=== PATIENT | male | born 1985 | race African-American/Black ===

== ENCOUNTER 2018-02-26 17:49 | Emergency (ER) | payer MEDICAID, OTHER ==
[~2018-02-26] VITALS: Ht 172.7 cm; Wt 95.0 kg
[~2018-02-26 17:49] MED LIST: ALBUTEROL INH; DOXYCYCLINE PO; FLUT1DIS3 IH; LEVO750T21 PO; MOTRIN; ROBITUSSIN
[2018-02-26] MEDS ORDERED: MORPHINE SULFATE 10 MG/ML CPJ IM ONE (18:30)
[2018-02-26 18:58] VITALS: BP 111/74
== END 2018-02-26 21:00 | disposition home or self-care (01) ==
LOC: ER 20:53
DX: S09.8XXA Other specified injuries of head, initial encounter (principal); R42 Dizziness and giddiness; R11.10 Vomiting, unspecified; F17.200 Nicotine dependence, unspecified, uncomplicated; J45.909 Unspecified asthma, uncomplicated; W22.8XXA Striking against or struck by other objects, initial encounter; Y93.89 Activity, other specified; Y92.89 Other specified places as the place of occurrence of the external cause; Y99.8 Other external cause status; Z79.899 Other long term (current) drug therapy
CPT/HCPCS: 70450; 96372; 99284; J2270

== ENCOUNTER 2020-08-09 14:42 | Emergency (ER) | payer OTHER ==
[~2020-08-09] VITALS: Ht 172.7 cm; Wt 96.0 kg
[2020-08-09 14:50] VITALS: BP 140/101
[2020-08-09] MEDS ORDERED: CLOT15CR5 TP (15:05)
== END 2020-08-09 15:12 | disposition home or self-care (01) ==
LOC: ER 14:42
DX: B35.3 Tinea pedis (principal); I10 Essential (primary) hypertension
CPT/HCPCS: 99282

== ENCOUNTER 2020-09-20 11:21 | Emergency (ER) | payer OTHER ==
[~2020-09-20] VITALS: Ht 172.7 cm; Wt 100.0 kg
[~2020-09-20 11:21] MED LIST changes: +CLOT15CR5 TP
[2020-09-20] MEDS ORDERED: FAMOTIDINE 20MG/2ML VIAL IV STA (11:30)
[2020-09-20] MEDS ORDERED: SODIUM CHLORIDE 0.9% 1,000 ML IV ONE (11:30)
[2020-09-20 11:57] LABS: CLARITY URINE CLEAR (CLEAR); COLOR URINE YELLOW (YELLOW); KETONES URINE NEGATIVE (NEGATIVE); LEUKOCYTE ESTERASE URINE NEGATIVE (NEGATIVE); NITRITE URINE NEGATIVE (NEGATIVE); OCCULT BLOOD URINE NEGATIVE (NEGATIVE); PH URINE 8.5 (4.5-8.0); PROTEIN URINE NEGATIVE (NEGATIVE); SPECIFIC GRAVITY URINE 1.017 (1.005-1.030); UROBILINOGEN URINE 0.2 E.U./dL (0.2-1.0)
[2020-09-20 11:58] LABS: BASOPHILS % 0.8 % (0.0-2.0); EOSINOPHILS % 2.6 % (0.0-5.0); HEMATOCRIT. 44.2 % (42.0-52.0); HEMOGLOBIN. 15.9 g/dL (14.0-18.0); LYMPHOCYTES % 20.1 % (20.0-50.0); MEAN CORPUSCULAR HEMOGLOBIN 32.9 pg (28.0-32.0); MEAN CORPUSCULAR VOLUME 91.4 fL (80.0-94.0); MEAN PLATELET VOLUME 9.7 fl (7.4-10.4); MONOCYTES % 6.2 % (2.0-8.0); NEUTROPHILS % 70.3 % (40.0-76.0); PLATELET 215 x1000/uL (130-400); RED BLOOD CELL COUNT 4.83 mill/uL (4.7-6.1); RED CELL DISTRIBUTION WIDTH 13.1 % (11.6-14.6)
[2020-09-20 12:03] LABS: CHLORIDE 106 mEq/L (98-107)
[2020-09-20 12:07] LABS: PROTHROMBIN TIME 10.3 sec (9.6-11.0)
[2020-09-20 13:19] LABS: *AMPHETAMINES SCREEN URINE NEGATIVE (NEGATIVE); *BARBITURATES SCREEN URINE NEGATIVE (NEGATIVE); *BENZODIAZEPINES SCREEN URINE NEGATIVE (NEGATIVE); *COCAINE SCREEN URINE NEGATIVE (NEGATIVE)
[2020-09-20 13:20] LABS: CANNABINOID URINE SCREEN PRESUMTIVE POSITIVE (NEGATIVE); METHADONE URINE SCREEN NEGATIVE (NEGATIVE); OPIATES URINE SCREEN NEGATIVE (NEGATIVE); PHENCYCLIDINE URINE SCREEN NEGATIVE (NEGATIVE)
[2020-09-20 14:30] VITALS: BP 143/102
[2020-09-20] MEDS ORDERED: METR500T MT ×2 (14:46→14:49)
[2020-09-20] MEDS ORDERED: CIPR-263 MT (14:47)
[2020-09-20] MEDS ORDERED: CIPR500T5 MT (14:49)
[2020-09-20] MEDS ORDERED: ONDA4TAB5 MT (14:49)
[2020-09-20] MEDS ORDERED: TRAM50TA3 MT (14:49)
== END 2020-09-20 15:34 | disposition home or self-care (01) ==
LOC: ER 11:21
DX: K57.92 Diverticulitis of intestine, part unspecified, without perforation or abscess without bleeding (principal); N43.3 Hydrocele, unspecified; N50.89 Other specified disorders of the male genital organs; R16.0 Hepatomegaly, not elsewhere classified
CPT/HCPCS: 36415; 74176; 76870; 80053; 80305; 81003; 83690; 85025; 85610; 93976; 96361; 96374; 99285; J3490; J7030

== ENCOUNTER 2020-11-27 16:16 | Emergency (ER) | payer OTHER ==
[~2020-11-27] VITALS: Ht 172.7 cm; Wt 93.0 kg
[~2020-11-27 16:16] MED LIST changes: +CIPR-263 MT; +CIPR500T5 MT; +METR500T MT; +ONDA4TAB5 MT; +TRAM50TA3 MT
[2020-11-27 18:47] VITALS: BP 161/91
== END 2020-11-27 18:49 | disposition home or self-care (01) ==
LOC: ER 16:31
DX: R20.2 Paresthesia of skin (principal); Z13.9 Encounter for screening, unspecified; J45.909 Unspecified asthma, uncomplicated; I10 Essential (primary) hypertension; F12.10 Cannabis abuse, uncomplicated; Z79.899 Other long term (current) drug therapy
CPT/HCPCS: 82962; 99281

== ENCOUNTER 2021-05-18 22:44 | Emergency (ER) | payer OTHER ==
[~2021-05-18] VITALS: Ht 172.7 cm; Wt 102.0 kg
[2021-05-19] MEDS ORDERED: KETOROLAC 60MG/2ML VIAL IM ONE (01:45)
[2021-05-19 02:47] LABS: CLARITY URINE CLOUDY (CLEAR); COLOR URINE DARK YELLOW (YELLOW); KETONES URINE TRACE (NEGATIVE); LEUKOCYTE ESTERASE URINE NEGATIVE (NEGATIVE); NITRITE URINE NEGATIVE (NEGATIVE); OCCULT BLOOD URINE NEGATIVE (NEGATIVE); PROTEIN URINE NEGATIVE (NEGATIVE); SPECIFIC GRAVITY URINE 1.033 (1.005-1.030)
[2021-05-19] MEDS ORDERED: IBUP-2029 MT (05:49)
[2021-05-19] MEDS ORDERED: CYCL10TA7 MT (05:49)
[2021-05-19 06:01] VITALS: BP 136/92
== END 2021-05-19 06:04 | disposition home or self-care (01) ==
LOC: ER 22:44
DX: R51.9 Headache, unspecified (principal); R07.89 Other chest pain; J45.909 Unspecified asthma, uncomplicated; I10 Essential (primary) hypertension; F12.10 Cannabis abuse, uncomplicated; Z79.899 Other long term (current) drug therapy
CPT/HCPCS: 70450; 71250; 81003; 96372; 99291; J1885

== ENCOUNTER 2021-07-09 14:40 | Emergency (ER) | payer OTHER ==
[~2021-07-09] VITALS: Ht 172.7 cm; Wt 110.0 kg
[~2021-07-09 14:40] MED LIST changes: +CYCL10TA7 MT; +IBUP-2029 MT
[2021-07-09] MEDS ORDERED: KETOROLAC 60MG/2ML VIAL IM STA (15:23)
[2021-07-09] MEDS ORDERED: METOCLOPRAMIDE HCL 10MG/2ML VIAL IM ONE (15:30)
[2021-07-09 15:46] LABS: BASOPHILS % 0.6 % (0.0-2.0); HEMATOCRIT. 46.1 % (42.0-52.0); HEMOGLOBIN. 16.1 g/dL (14.0-18.0); LYMPHOCYTES % 20.1 % (20.0-50.0); MEAN CORPUSCULAR HEMOGLOBIN 31.6 pg (28.0-32.0); MEAN CORPUSCULAR VOLUME 90.4 fL (80.0-94.0); MEAN PLATELET VOLUME 9.6 fl (7.4-10.4); MONOCYTES % 8.8 % (2.0-8.0); NEUTROPHILS % 69.5 % (40.0-76.0); PLATELET 185 x1000/uL (130-400); RED CELL DISTRIBUTION WIDTH 13.2 % (11.6-14.6)
[2021-07-09 15:51] LABS: CHLORIDE 107 mEq/L (98-107)
[2021-07-09] MEDS ORDERED: NAPR-681 PO (18:24)
[2021-07-09] MEDS ORDERED: CYCL5TAB PO (18:24)
[2021-07-09 18:34] VITALS: BP 126/75
== END 2021-07-09 18:35 | disposition home or self-care (01) ==
LOC: ER 14:40
DX: R51.9 Headache, unspecified (principal); F12.10 Cannabis abuse, uncomplicated; J45.909 Unspecified asthma, uncomplicated; Z20.822 Contact with and (suspected) exposure to COVID-19
CPT/HCPCS: 36415; 80053; 85025; 87426; 96372; 99284; J1885; J2765

== ENCOUNTER 2022-07-06 07:57 | Emergency (ER) | payer OTHER ==
[~2022-07-06] VITALS: Ht 172.7 cm; Wt 97.0 kg
[~2022-07-06 07:57] MED LIST changes: +CYCL10TA21 MT; -CYCL10TA7 MT; +CYCL5TAB PO; +NAPR-681 PO
[2022-07-06 08:13] VITALS: BP 168/62
[2022-07-06] MEDS ORDERED: MORPHINE SULFATE 10 MG/ML CPJ IM ONE (08:45)
[2022-07-06] MEDS ORDERED: ONDANSETRON 4MG ODT PO ONE (08:45)
[2022-07-06] MEDS ORDERED: KETOROLAC 60MG/2ML VIAL IM ONE (08:45)
[2022-07-06] MEDS ORDERED: MORPHINE SULFATE 10 MG/ML CPJ IM NR (09:00)
[2022-07-06 10:00] LABS: BASOPHILS % 0.4 % (0.0-2.0); EOSINOPHILS % 0.9 % (0.0-5.0); HEMATOCRIT. 45.3 % (42.0-52.0); HEMOGLOBIN. 15.8 g/dL (14.0-18.0); LYMPHOCYTES % 12.8 % (20.0-50.0); MEAN CORPUSCULAR VOLUME 91.6 fL (80.0-94.0); MEAN PLATELET VOLUME 9.9 fl (7.4-10.4); MONOCYTES % 6.4 % (2.0-8.0); NEUTROPHILS % 79.5 % (40.0-76.0); PLATELET 223 x1000/uL (130-400); RED BLOOD CELL COUNT 4.94 mill/uL (4.7-6.1); RED CELL DISTRIBUTION WIDTH 13.1 % (11.6-14.6)
[2022-07-06 10:04] LABS: CHLORIDE 110 mEq/L (98-107)
[2022-07-06] MEDS ORDERED: LEVOFLOXACIN 250MG TABLET PO STA (10:17)
[2022-07-06 10:20] LABS: CLARITY URINE CLEAR (CLEAR); COLOR URINE YELLOW (YELLOW); KETONES URINE NEGATIVE (NEGATIVE); LEUKOCYTE ESTERASE URINE TRACE (NEGATIVE); NITRITE URINE NEGATIVE (NEGATIVE); OCCULT BLOOD URINE NEGATIVE (NEGATIVE); PROTEIN URINE NEGATIVE (NEGATIVE); SPECIFIC GRAVITY URINE 1.024 (1.005-1.030)
[2022-07-06] MEDS ORDERED: IBUP-2028 MT (10:26)
[2022-07-06] MEDS ORDERED: METR-167 MT (10:26)
[2022-07-06] MEDS ORDERED: MORP15TA67 MT (10:26)
[2022-07-06] MEDS ORDERED: LEVO750T68 MT (10:26)
[2022-07-06] MEDS ORDERED: LACT1CAP78 MT (10:26)
[2022-07-06] MEDS ORDERED: TOPUD PO (10:26)
[2022-07-06] MEDS ORDERED: METRONIDAZOLE 500MG TABLET PO NR (10:30)
[2022-07-06] MEDS ORDERED: HYDROCODONE/ACETAMINOPHEN 7.5/325MG TABLET PO ONE (10:30)
== END 2022-07-06 11:05 | disposition home or self-care (01) ==
LOC: ER 07:57
DX: K57.92 Diverticulitis of intestine, part unspecified, without perforation or abscess without bleeding (principal); F12.10 Cannabis abuse, uncomplicated; Z79.899 Other long term (current) drug therapy
CPT/HCPCS: 36415; 74176; 76857; 76870; 80053; 81003; 83605; 83690; 85025; 93976; 96372; 99285; J1885; J2270; Q0162; Z7610

== ENCOUNTER 2022-12-27 12:01 | Emergency (ER) | payer OTHER ==
[~2022-12-27] VITALS: Ht 177.8 cm; Wt 104.0 kg
[~2022-12-27 12:01] MED LIST changes: +IBUP-2028 MT; +LACT1CAP78 MT; +LEVO750T68 MT; +METR-167 MT; +MORP15TA67 MT; +TOPUD PO
[2022-12-27 12:03] VITALS: O2SAT 97
[2022-12-27] MEDS ORDERED: CEPH500T MT ×2 (12:50→12:54)
[2022-12-27] MEDS ORDERED: SULF1TAB48 MT (12:52)
[2022-12-27] MEDS ORDERED: SULFAMETHOXAZOLE/TRIMETHOPRIM 800/160MG TABLET PO ONE (13:00)
[2022-12-27] MEDS ORDERED: CEPHALEXIN 250MG CAPSULE PO ONE (13:00)
[2022-12-27] MEDS ORDERED: SULFAMETHOXAZOLE/TRIMETHOPRIM 800/160MG TABLET PO NR (15:45)
[2022-12-27] MEDS ORDERED: CEPHALEXIN 250MG CAPSULE PO NR (15:45)
[2022-12-27 18:18] VITALS: BP 125/74; PULSE 79; RESP 19; TEMP 98.1
== END 2022-12-27 18:19 | disposition home or self-care (01) ==
LOC: ER 12:01
DX: S61.432A Puncture wound without foreign body of left hand, initial encounter (principal); B96.89 Other specified bacterial agents as the cause of diseases classified elsewhere; F12.90 Cannabis use, unspecified, uncomplicated; Z79.899 Other long term (current) drug therapy; X58.XXXA Exposure to other specified factors, initial encounter; Y93.89 Activity, other specified; Y92.89 Other specified places as the place of occurrence of the external cause; Y99.8 Other external cause status
CPT/HCPCS: 73130; 99283; Z7610

== ENCOUNTER 2023-03-16 11:38 | Emergency (ER) | payer OTHER ==
[~2023-03-16] VITALS: Ht 175.3 cm; Wt 81.0 kg
[~2023-03-16 11:38] MED LIST changes: +CEPH500T MT; +SULF1TAB48 MT
[2023-03-16 11:42] VITALS: BP 165/117; PULSE 73; RESP 20; TEMP 98.3; O2SAT 96
[2023-03-16] MEDS ORDERED: OFLO5DRO4 RIGHT EAR (13:49)
== END 2023-03-16 14:03 | disposition home or self-care (01) ==
LOC: ER 11:38
DX: T16.2XXA Foreign body in left ear, initial encounter (principal); X58.XXXA Exposure to other specified factors, initial encounter; Y93.89 Activity, other specified; Y92.89 Other specified places as the place of occurrence of the external cause; Y99.8 Other external cause status
CPT/HCPCS: 99281

== ENCOUNTER 2023-07-12 18:30 | Emergency (ER) | payer MEDICAID, OTHER ==
[~2023-07-12] VITALS: Ht 172.7 cm; Wt 106.0 kg
[~2023-07-12 18:30] MED LIST changes: +OFLO5DRO4 RIGHT EAR
[2023-07-12 18:55] VITALS: O2SAT 98
[2023-07-12] MEDS ORDERED: METHYLPREDNISOLONE SOD SUCC 125MG/2ML (ACT-O-VIAL) IM NR (20:12)
[2023-07-12] MEDS ORDERED: D-ME473S50 PO (20:48)
[2023-07-12] MEDS: ONDANSETRON HCL 4MG/2ML INJ IM STA (22:30)
[2023-07-12] MEDS: KETOROLAC 60MG/2ML VIAL IM STA (22:30)
[2023-07-12] MEDS: METHYLPREDNISOLONE SOD SUCC 125MG/2ML (ACT-O-VIAL) IM NR (22:30)
[2023-07-12 22:40] VITALS: BP 138/88; PULSE 88; RESP 18; TEMP 97.4
[2023-07-12] MEDS ORDERED: KETOROLAC 60MG/2ML VIAL IM NR (22:45)
[2023-07-12] MEDS ORDERED: ONDANSETRON HCL 4MG/2ML INJ IM NR (22:45)
== END 2023-07-12 22:50 | disposition home or self-care (01) ==
LOC: ER 18:30
DX: J02.9 Acute pharyngitis, unspecified (principal); J06.9 Acute upper respiratory infection, unspecified; F12.10 Cannabis abuse, uncomplicated; J45.909 Unspecified asthma, uncomplicated; Z87.01 Personal history of pneumonia (recurrent)
CPT/HCPCS: 87430; 87070; 71045; 96372; 99284; J1885; J2930; J2405

== ENCOUNTER 2023-08-22 13:30 | Emergency (ER) | payer MEDICAID ==
[~2023-08-22] VITALS: Ht 172.7 cm; Wt 80.0 kg
[~2023-08-22 13:30] MED LIST changes: +D-ME473S50 PO
[2023-08-22 13:44] VITALS: TEMP 98.6; O2SAT 100
[2023-08-22 14:02] LABS: BASOPHILS % 0.5 % (0.0-2.0); EOSINOPHILS % 1.5 % (0.0-5.0); HEMATOCRIT. 44.1 % (42.0-52.0); HEMOGLOBIN. 15.4 g/dL (14.0-18.0); LYMPHOCYTES % 9.8 % (20.0-50.0); MEAN CORPUSCULAR VOLUME 91.5 fL (80.0-94.0); MEAN PLATELET VOLUME 9.9 fl (7.4-10.4); MONOCYTES % 6.7 % (2.0-8.0); NEUTROPHILS % 81.5 % (40.0-76.0); PLATELET 173 x1000/uL (130-400); RED BLOOD CELL COUNT 4.82 mill/uL (4.7-6.1); RED CELL DISTRIBUTION WIDTH 13.3 % (11.6-14.6); WHITE BLOOD COUNT 20.4 x1000/uL (4.5-11.0)
[2023-08-22 14:10] LABS: CARBON DIOXIDE 27 mEq/L (21-32); CHLORIDE 105 mEq/L (98-107); POTASSIUM 3.5 mEq/L (3.5-5.1); SODIUM 139 mEq/L (136-145)
[2023-08-22 14:11] LABS: CALCIUM 9.8 mg/dL (8.7-10.4)
[2023-08-22 14:16] LABS: CREATININE 0.9 mg/dL (0.6-1.3); GLUCOSE 122 mg/dL (70-105); UREA NITROGEN BLOOD 10 mg/dL (9-23)
[2023-08-22 14:17] LABS: ALANINE AMINOTRANSFERASE 29 IU/L (10-49)
[2023-08-22 14:18] LABS: ALBUMIN 4.4 g/dL (3.2-4.8); ASPARTATE AMINOTRANSFERASE 20 IU/L (<34); BILIRUBIN DIRECT 0.3 mg/dL (<=3.0); PROTEIN TOTAL 7.5 g/dL (6.0-8.3)
[2023-08-22 14:25] LABS: CLARITY URINE CLEAR (CLEAR); COLOR URINE DARK YELLOW (YELLOW); GLUCOSE URINE NEGATIVE (NEGATIVE); KETONES URINE NEGATIVE (NEGATIVE); LEUKOCYTE ESTERASE URINE NEGATIVE (NEGATIVE); NITRITE URINE NEGATIVE (NEGATIVE); OCCULT BLOOD URINE NEGATIVE (NEGATIVE); PH URINE 5.5 (4.5-8.0); PROTEIN URINE NEGATIVE (NEGATIVE); SPECIFIC GRAVITY URINE 1.032 (1.005-1.030)
[2023-08-22] MEDS ORDERED: ONDANSETRON HCL 4MG/2ML INJ IV STA (14:36)
[2023-08-22] MEDS ORDERED: KETOROLAC 30MG/ML VIAL IV STA (14:36)
[2023-08-22] MEDS: SODIUM CHLORIDE 0.9% 1,000 ML IV ONE (14:45)
[2023-08-22] MEDS: PIPERACILLIN/TAZO 3.375G/50ML 50 ML IV ONE (16:15)
[2023-08-22 16:55] VITALS: BP 120/75; PULSE 85; RESP 16
[2023-08-22] MEDS: ONDANSETRON HCL 4MG/2ML INJ IV NR (17:22)
[2023-08-22] MEDS: KETOROLAC 30MG/ML VIAL IV NR (17:22)
[2023-08-22] MEDS ORDERED: AMOX1TAB16 MT (18:29)
[2023-08-22] MEDS ORDERED: ONDA4TAB11 PO (18:29)
== END 2023-08-22 19:25 | disposition home or self-care (01) ==
LOC: ER 13:30
DX: K57.92 Diverticulitis of intestine, part unspecified, without perforation or abscess without bleeding (principal); R11.2 Nausea with vomiting, unspecified; D72.828 Other elevated white blood cell count; F12.90 Cannabis use, unspecified, uncomplicated; Z79.899 Other long term (current) drug therapy
CPT/HCPCS: 36415; 74176; 80048; 80076; 81003; 85025; 96361; 96365; 96375; 99285; J1885; J2405; J2543; J7030

== ENCOUNTER 2024-07-28 19:13 | Emergency (ER) | payer MEDICAID ==
[~2024-07-28] VITALS: Ht 172.7 cm; Wt 109.0 kg
[~2024-07-28 19:13] MED LIST changes: +AMOX1TAB16 MT; -CYCL5TAB PO; +CYCL5TAB3 PO; +ONDA-239 PO
[2024-07-28 19:15] VITALS: O2SAT 99
[2024-07-28 19:21] VITALS: BP 144/78; PULSE 89; RESP 20; TEMP 36.7; O2SAT 98
[2024-07-28] MEDS ORDERED: AMOX-494 MT (19:59)
[2024-07-28] MEDS ORDERED: IBUP-2028 MT (19:59)
== END 2024-07-28 20:07 | disposition home or self-care (01) ==
LOC: ER 19:13
DX: H66.92 Otitis media, unspecified, left ear (principal); F12.10 Cannabis abuse, uncomplicated; J45.909 Unspecified asthma, uncomplicated; Z79.899 Other long term (current) drug therapy
CPT/HCPCS: 99283

== ENCOUNTER 2024-09-11 18:41 | Emergency (ER) | payer MEDICAID ==
[~2024-09-11] VITALS: Ht 172.7 cm; Wt 118.0 kg
[~2024-09-11 18:41] MED LIST changes: +AMOX-494 MT; +CIPR-452 MT; -CIPR500T5 MT
[2024-09-11 18:46] VITALS: RESP 18; O2SAT 98
[2024-09-11] MEDS: ACETAMINOPHEN 650MG/20.3ML UDC PO ONE (20:21)
[2024-09-11] MEDS: SODIUM CHLORIDE 0.9% 1,000 ML IV ONE (20:22)
[2024-09-11] MEDS: KETOROLAC 30MG/ML VIAL IV STA (20:26)
[2024-09-11 20:35] LABS: BASOPHILS % 0.5 % (0.0-2.0); EOSINOPHILS % 2.1 % (0.0-5.0); HEMOGLOBIN. 15.9 g/dL (14.0-18.0); LYMPHOCYTES % 32.3 % (20.0-50.0); MEAN CORPUSCULAR HEMOGLOBIN 32.3 pg (28.0-32.0); MEAN CORPUSCULAR HGB CONC 35.4 g/dL (31.0-37.0); MEAN CORPUSCULAR VOLUME 91.3 fL (80.0-94.0); MEAN PLATELET VOLUME 9.9 fl (7.4-10.4); MONOCYTES % 6.1 % (2.0-8.0); PLATELET 210 x1000/uL (130-400); RED BLOOD CELL COUNT 4.93 mill/uL (4.7-6.1); RED CELL DISTRIBUTION WIDTH 13.2 % (11.6-14.6); WHITE BLOOD COUNT 12.2 x1000/uL (4.5-11.0)
[2024-09-11 20:39] LABS: CHLORIDE 105 mEq/L (98-107); POTASSIUM 3.5 mEq/L (3.5-5.1); SODIUM 141 mEq/L (136-145)
[2024-09-11 20:40] LABS: CALCIUM 9.7 mg/dL (8.7-10.4); CARBON DIOXIDE 25 mEq/L (21-32)
[2024-09-11 20:45] LABS: CREATININE 0.9 mg/dL (0.6-1.3); GLUCOSE 134 mg/dL (70-105); UREA NITROGEN BLOOD 10 mg/dL (9-23)
[2024-09-11 20:47] LABS: ALANINE AMINOTRANSFERASE 48 IU/L (10-49); ALBUMIN 4.7 g/dL (3.2-4.8); ASPARTATE AMINOTRANSFERASE 25 IU/L (<34); BILIRUBIN DIRECT 0.1 mg/dL (<=3.0); BILIRUBIN TOTAL 0.4 mg/dL (0.1-1.0); PROTEIN TOTAL 7.4 g/dL (6.0-8.3)
[2024-09-11] MEDS ORDERED: IBUP-2028 MT (21:50)
[2024-09-11] MEDS: DEXAMETHASONE 10 MG/ML VIAL IV ONE (22:06)
[2024-09-11 22:09] VITALS: BP 148/104; PULSE 69; TEMP 36.4; O2SAT 99
[2024-09-11 22:25] LABS: INFLUENZA TYPE A Presumptive Negative (Pres. Neg.)
[2024-09-11 22:26] LABS: INFLUENZA TYPE B Presumptive Negative (Pres. Neg.)
== END 2024-09-11 22:30 | disposition home or self-care (01) ==
LOC: ER 18:41
DX: B34.9 Viral infection, unspecified (principal); J45.909 Unspecified asthma, uncomplicated; Z79.51 Long term (current) use of inhaled steroids; F10.90 Alcohol use, unspecified, uncomplicated; F12.90 Cannabis use, unspecified, uncomplicated; Z20.822 Contact with and (suspected) exposure to COVID-19; Y90.9 Presence of alcohol in blood, level not specified
CPT/HCPCS: 80076; 80048; 83690; 85025; 87804 ×2; 36415; 96361; 96374; 96375; 99284; 87426; J1100; J1885; J7030; Z7610 ×3